=== PATIENT | female | born 1930 | race Caucasian/White ===

== ENCOUNTER 2018-07-05 12:53 | Emergency (ER) | payer OTHER ==
[2018-07-05 13:02] VITALS: BP 140/60; PULSE 91; TEMP 98.4; BMI 23.3
[2018-07-05] MEDS ORDERED: PENICILLIN V POTASSIUM 500 MG TABLET PO ONE (14:21)
--- NOTE | 2018-07-05 14:46 | PDOC ---
Attending Attestation - Resident Resident Name: Joshua Chung - ED Attending Attestation I have performed the following: I have examined & evaluated the patient, The case was reviewed & discussed with the resident, I agree w/resident's findings & plan, Exceptions are as noted - HPI HPI: 07/05/18 14:19 88y F hx of DM presents with complaint of facial swelling since today. Pt states she was eating plaintains on thursday when she had some pain in her teeth. Since then she has felt soreness in her teeth - this morning the pt awoke with increased pain and swelling in her cheek. patient notes she hasnt been to a dentist in decades because she 'hasn't had to'. she denies any fevers, difficulty swallowing though notes it hurts to chew. No headache, neck pain, n/ v, generalized weakness. Exam: General: no acute distress HEAD: atraumatic, normocephalic HEENT: no mastoid tenderness,+swelling of buccal/cheek and tenderness most prominent in the lower mndible, no significant erythema, no induration/ fluctuance, no salivary stones noted, poor dentition in general, no obvious teeth trauma/fracture, no focal abscesses appreciated, airway patent, no voice changes, ap: suspect inflammation/early abcess - no obvious area of fluctuance for I&D. no signs of apical pabsess, will give pcn will have pt fu with dentist return precautions were discussed - Physicial Exam PE: 07/05/18 14:46 see above - Medical Decision Making 07/05/18 14:46 see above
--- NOTE | 2018-07-05 14:51 | PDOC ---
History of Present Illness - General Chief Complaint: Abscess Boil Stated Complaint: TOOTHACHE Time Seen by Provider: 07/05/18 13:15 History Source: Patient Exam Limitations: No Limitations - History of Present Illness Initial Comments: 88 yo female pmh of DM presents to the ED with 1 day or right facial swelling. States she was eating Thursday and noted pain in her teeth. When waking up this am , pt noticed increased pain in the same location with associated swelling in her cheek. Pt denies ever seeing a dentist and has all [place] teeth. Denies F/C/ N/V, drainage from area, difficulay breathing or swallowing or neck pain Past History - Past Medical History Allergies/Adverse Reactions: Allergies Allergy/AdvReac Type Severity Reaction Status Date / Time No Known Allergies Allergy Verified 07/05/18 12:56 Home Medications: Ambulatory Orders Penicillin V Potassium [Pen Vee K -] 500 mg PO QID #28 tablet 07/05/18 COPD: No - Immunization History Immunization Up to Date: Yes - Suicide/Smoking/Psychosocial Hx Smoking History: Never smoked Information on smoking cessation initiated: No Hx Alcohol Use: No Drug/Substance Use Hx: No Review of Systems - Review of Systems Constitutional: No: Chills, Fever Respiratory: No: Shortness of Breath Cardiac (ROS): No: Chest Pain ABD/GI: No: Constipated, Diarrhea, Nausea, Vomiting Integumentary: Yes: Other (right facial swelling) Neurological: No: Headache, Numbness, Tingling *Physical Exam - Vital Signs Last Vital Signs Temp Pulse Resp BP Pulse Ox 98.4 F 91 H 17 140/60 96 07/05/18 12:57 07/05/18 12:57 07/05/18 12:57 07/05/18 12:57 07/05/18 12:57 - Physical Exam General Appearance: Yes: Nourished, Appropriately Dressed. No: Apparent Distress HEENT: positive: EOMI, Other (Large right mandibular facial swelling without area of fluctuance or drainage. Painful to the touch. No visible abscess seen inside mouth along the gums. Tender palpation to lower posterior molars). negative: Pharyngeal Erythema, Tonsillar Exudate, Sinus Tenderness, TM Bulging, TM Erythema Neck: positive: Supple. negative: Stridor, Lymphadenopathy (R), Lymphadenopathy (L), Tender lateral, Tender midline Respiratory/Chest: positive: Lungs Clear, Normal Breath Sounds Cardiovascular: positive: Regular Rhythm, Regular Rate Vascular Pulses: Dorsalis-Pedis (R): 4+, Doralis-Pedis (L): 4+ Gastrointestinal/Abdominal: positive: Flat, Soft Neurologic: positive: Fully Oriented, Alert, Normal Mood/Affect, Normal Response , Motor Strength 5/5 Moderate Sedation - Procedure Monitoring Vital Signs: Procedure Monitoring Vital Signs Temperature 98.4 F 07/05/18 12:57 Pulse Rate 91 H 07/05/18 12:57 Respiratory Rate 17 07/05/18 12:57 Blood Pressure 140/60 07/05/18 12:57 O2 Sat by Pulse Oximetry (%) 96 07/05/18 12:57 ED Treatment Course - Medications Given in the ED: ED Medications Discontinued Medications Generic Name Dose Route Start Last Admin Trade Name Freq PRN Reason Stop Dose Admin Penicillin V Potassium 500 mg 07/05/18 14:21 07/05/18 14:44 Pen Vee K - PO 07/05/18 14:22 500 mg ONCE ONE Administration Medical Decision Making - Medical Decision Making 88 yo presents to ed 1 day of right mandibular facial swelling without F/C, difficulty breathing or swallowing or visible abscess/area of fluctance to drain Vitals WNL PE: Large right mandibular facial swelling without area of fluctuace or drainage. Painful to the touch. No visible abscess seen inside mouth along the gums. Tender palpation to lower posterior molars Pen VK 500 mg QID indicated for oral infection and follow up with Dentist Lisa present who calls near by Dentist and sets up appointment within the next24 hours while present in the ED Pt safe for DC home with antibiotics and dentist follow up strict return precautions for worsening infection with potential airway compromise given understands plan *DC/Admit/Observation/Transfer Diagnosis at time of Disposition: Dental infection - Discharge Dispostion Disposition: HOME Condition at time of disposition: Stable Decision to Admit order: No - Prescriptions Prescriptions: Penicillin V Potassium [Pen Vee K -] 500 mg PO QID #28 tablet - Referrals - Patient Instructions Printed Discharge Instructions: DI for Dental Pain, DI for Mouth Pain Additional Instructions: Please see a dentist within the next 24 hours. Take the Antibiotics sent to your Pharmacy as prescribed. Return to the ER for new or concerning symptoms including but not limited to: high fevers, inability to eat or drink, difficulty swallowing or breathing or excessive progression of swelling under the tongue. Take over the counter motrin and tylenol for pain. Thank you. - Post Discharge Activity
== END 2018-07-05 15:08 | disposition home or self-care (01) ==
LOC: JER 12:53
DX: K04.7 Periapical abscess without sinus (principal); E11.9 Type 2 diabetes mellitus without complications
CPT/HCPCS: 99282-25